=== PATIENT | male | born 1975 | race Caucasian/White ===

== ENCOUNTER 2020-06-22 00:37 | Observation (INO) | payer OTHER ==
[2020-06-22] MEDS ORDERED: TYLENOL EXTRA STRENGTH 500 MG PO ONE (01:15)
[2020-06-22] MEDS ORDERED: TYLENOL EXTRA STRENGTH 500 MG ONE (01:15)
[2020-06-22 01:18] LABS: Hematocrit 39.6 % (42-50); Hemoglobin 13.8 gm/dl (12.5-18.0); Mean Corpuscular Hemoglobin 27.5 pg (26-32); Mean Corpuscular Hgb Concent. 34.8 g/dl (32-36); Mean Platelet Volume 10.2 fl (7.5-11.0); Platelet Count 129 K/mm3 (150-450); Red Blood Count 5.01 M/mm3 (4.1-5.6); White Blood Count 2.7 K/mm3 (4.0-10.5)
[2020-06-22 01:32] LABS: ALKALINE PHOSPHATASE 65 U/L (38-126); ANION GAP 13.7 MEQ/L (5-15); BLOOD UREA NITROGEN 10 mg/dL (9-20); CHLORIDE 99 mmol/L (98-107); Calcium 9.4 mg/dL (8.4-10.2); Carbon Dioxide 25 mmol/L (22-30); Creatinine 1 0.75 mg/dL (0.66-1.25); Glucose 256 mg/dL (74-106); Potassium 3.2 mmol/L (3.5-5.1); SGOT/AST 78 U/L (17-59); SGPT/ALT 76 U/L (0-50); SODIUM 135 mmol/L (137-145); Total Protein 6.9 g/dL (6.3-8.2)
--- NOTE | 2020-06-22 01:59 | ERPHSYRPT ---
- History of Present Illness Time Seen by Provider: 06/22/20 00:48 Source: patient, EMS Exam Limitations: no limitations Patient Subjective Stated Complaint: pt states he was diagnosed with the covid 19 on thursday. states he has run a fever for the last 2 days and has not been able to keep his temperature down today. states temp was 103.5 at home. Triage Nursing Assessment: pt alert and oriented, answers questions approp. skin warm and dry. respirations nonlabored with lungs cta. pt pt arrive per ambulance, transfers from ems cot to stretcher without difficulty. pt c/o generalized aches and pains Physician History: 44 yo wm w diagnosies of Covid19 on06/14/20 presents w worsening fever/chills/myalgias. Pt has a h/o DM/morbid obesity. Cough Quality/Degree: dry cough Associated Symptoms: fever, chills, cough Allergies/Adverse Reactions: Penicillins Allergy (Verified 06/22/20 01:46) Diarrhea Home Medications: Atorvastatin Calcium [Lipitor] 40 mg PO DAILY 06/22/20 [History] Fluoxetine HCl [Prozac] 40 mg PO DAILY 06/22/20 [History] Metformin HCl 500 mg [Glucophage 500 MG] 500 mg PO BID 06/22/20 [History] Trazodone HCl 100 mg PO HS PRN PRN 06/22/20 [History] Hx Tetanus, Diphtheria Vaccination/Date Given: Yes Hx Influenza Vaccination/Date Given: No Hx Pneumococcal Vaccination/Date Given: No Immunizations Up to Date: Yes Travel Risk - International Travel Have you traveled outside of the country in past 3 weeks: No - Coronavirus Screening Symptoms: Fever Close contact with a COVID-19 positive Pt in past 14-21 Days: No - Review of Systems Constitutional: Fever, Chills, Fatigue, Lethargy Eyes: No Symptoms Ears, Nose, & Throat: No Symptoms Respiratory: Cough Cardiac: No Symptoms Abdominal/Gastrointestinal: No Symptoms Skin: No Symptoms Neurological: No Symptoms Psychological: No Symptoms Endocrine: No Symptoms Hematologic/Lymphatic: No Symptoms Immunological/Allergic: No Symptoms - Past Medical History Pertinent Past Medical History: Yes Neurological History: No Pertinent History ENT History: Other Cardiac History: High Cholesterol Respiratory History: No Pertinent History Endocrine Medical History: Diabetes Type II Musculoskeletal History: No Pertinent History GI Medical History: Other History: No Pertinent History Psycho-Social History: Anxiety Male Reproductive Disorders: No Pertinent History Other Medical History: INCREASED LIVER ENZYMES, fatty liver, OPTIC NEURITIS - Past Surgical History Past Surgical History: Yes Neuro Surgical History: No Pertinent History Cardiac: No Pertinent History Respiratory: No Pertinent History Gastrointestinal: No Pertinent History Genitourinary: Other Musculoskeletal: No Pertinent History Male Surgical History: No Pertinent History Other Surgical History: TONSILLECTOMY, kidney stone - Social History Smoking Status: Never smoker Exposure to second hand smoke: No Drug Use: none Patient Lives Alone: Yes - Nursing Vital Signs Nursing Vital Signs: Initial Vital Signs Temperature 103.2 F 06/22/20 00:38 Pulse Rate 112 H 06/22/20 00:38 Respiratory Rate 20 06/22/20 00:38 Blood Pressure 133/95 06/22/20 00:38 O2 Sat by Pulse Oximetry 97 06/22/20 00:38 Pain Scale Pain Intensity 2 - Physical Exam General Appearance: no apparent distress, lethargy Eye Exam: PERRL/EOMI Ears, Nose, Throat Exam: normal ENT inspection Neck Exam: normal inspection, non-tender, supple, full range of motion, No meningismus, No mass, No Brudzinski, No Kernig's Respiratory Exam: normal breath sounds, lungs clear Cardiovascular Exam: tachycardia Gastrointestinal/Abdomen Exam: soft, normal bowel sounds, No tenderness Back Exam: normal inspection, normal range of motion, CVA tenderness Neurologic Exam: alert, oriented x 3, cooperative, insurance consultant II-XII nml as tested, normal mood/affect, sensation nml, No motor deficits, No sensory deficit Skin Exam: normal color, warm, dry, No rash Lymphatic Exam: adenopathy SpO2 Interpretation: normal SpO2: 97 O2 Delivery: Room Air - Course EKG Interpreted by Me: RATE (sinus tach/poor r wave progression/ST-T wave changes) - Radiology Exams Chest X-ray Interpretation: Interpreted by me (Nothing acute) Ordered Tests: Active Orders 24 hr Category Date Time Status Bedrest with BRP/BSC ROUTINE Activity 06/22/20 02:37 Active Code Status Order ROUTINE Care 06/22/20 02:35 Active EKG-ER Only STAT Care 06/22/20 00:56 Active Elevate HOB ROUTINE Care 06/22/20 02:34 Active IV Care Q6H Care 06/22/20 02:36 Active Intake and Output Q12H Care 06/22/20 02:34 Active Isolation, Initiate & Maintain Q6H Care 06/22/20 02:34 Active Isolation, Initiate & Maintain STAT Care 06/22/20 00:[address] in Observation ROUTINE Care 06/22/20 02:34 Active Vital Signs Q4H Care 06/22/20 02:34 Active Consistent Carbohydrate Diet 1800 Calorie Diet 06/22/20 Breakfast Active CHEST 1 VIEW (PORTABLE) Stat Exams 06/22/20 00:51 Taken BLOOD CULTURE Stat Lab 06/22/20 Ordered CBC AM.LAB Lab 06/22/20 04:00 Ordered CBC Stat Lab 06/22/20 01:15 Completed CMP AM.LAB Lab 06/22/20 04:00 Ordered CMP Stat Lab 06/22/20 01:15 Completed Lactic Acid AM.LAB Lab 06/22/20 04:00 Ordered Lactic Acid Stat Lab 06/22/20 00:30 Completed TROPONIN Q3H Lab 06/22/20 04:00 Ordered TROPONIN Q3H Lab 06/22/20 07:00 Ordered TROPONIN Q3H Lab 06/22/20 10:00 Ordered TROPONIN Q3H Lab 06/22/20 13:00 Ordered UA W/RFX UR CULTURE Stat Lab 06/22/20 02:06 Completed Pulse Oximetry ROUTINE RT 06/22/20 02:34 Active Respiratory Therapy Consult ROUTINE RT 06/22/20 02:34 Active Transfer Order Routine Transfer 06/22/20 Ordered Medication Summary Generic Name Dose Route Start Last Admin Trade Name Freq PRN Reason Stop Dose Admin Acetaminophen 650 mg 06/22/20 02:34 Tylenol 325 Mg PO 07/22/20 02:33 Q4H PRN PRN PAIN AND/OR FEVER Enoxaparin Sodium 40 mg 06/22/20 10:00 Enoxaparin Sodium SQ 07/22/20 09:59 DAILY BRIDGET Sodium Chloride 1,000 mls @ 80 mls/hr 06/22/20 02:45 Sodium Chloride 0.9% 1000 Ml IV 07/22/20 02:44 .[id number] BRIDGET Insulin Human Lispro 0 unit 06/22/20 02:34 Humalog SQ 07/22/20 02:33 UD PRN HYPERGLYCEMIA Ondansetron HCl 4 mg 06/22/20 02:34 Zofran 4 Mg/2 Ml Vial IV 07/22/20 02:33 Q6H PRN PRN NAUSEA/VOMITING Pantoprazole Sodium 40 mg 06/22/20 10:00 Protonix 40 Mg Iv IV 07/22/20 09:59 Q24H10 BRIDGET Discontinued Medications Generic Name Dose Route Start Last Admin Trade Name Freq PRN Reason Stop Dose Admin Acetaminophen 1,000 mg 06/22/20 01:15 06/22/20 01:16 Tylenol Extra Strength 500 Mg PO 06/22/20 01:16 1,000 mg STAT ONE Administration Acetaminophen Confirm 06/22/20 01:15 Tylenol Extra Strength 500 Mg Administered 06/22/20 01:16 Dose 1,000 mg .ROUTE .STK-MED ONE Lab/Rad Data: Laboratory Result Diagrams 06/22/20 01:15 06/22/20 01:15 Laboratory Results 06/22/20 06/22/20 06/22/20 Range/Units 02:06 01:16 01:15 WBC (4.0-10.5) K/mm3 RBC (4.1-5.6) M/mm3 Hgb (12.5-18.0) gm/dl Hct (42-50) % MCV (78-100) fl MCH (26-32) pg MCHC (32-36) g/dl RDW (11.5-14.0) % Plt Count (150-450) K/mm3 MPV (7.5-11.0) fl Sodium 135 L (137-145) mmol/L Potassium 3.2 L (3.5-5.1) mmol/L Chloride 99 (98-107) mmol/L Carbon Dioxide 25 (22-30) mmol/L Anion Gap 13.7 (5-15) MEQ/L BUN 10 (9-20) mg/dL Creatinine 0.75 (0.66-1.25) mg/dL Estimated GFR > 60.0 ML/MIN Glucose 256 H (74-106) mg/dL Lactic Acid (0.4-2.0) Calcium 9.4 (8.4-10.2) mg/dL Total Bilirubin 0.80 (0.2-1.3) mg/dL AST 78 H (17-59) U/L ALT 76 H (0-50) U/L Alkaline Phosphatase 65 (38-126) U/L Troponin 0.00 (0.00-0.03) ng/mL Serum Total Protein 6.9 (6.3-8.2) g/dL Albumin 4.0 (3.5-5.0) g/dL Urine Color YELLOW (YELLOW) Urine Appearance CLEAR (CLEAR) Urine pH 6.0 (5-6) Ur Specific Hancock 1.029 (1.005-1.025) Urine Protein 100 (Negative) Urine Ketones TRACE (NEGATIVE) Urine Blood SMALL (0-5) Lul/ul Urine Nitrite NEGATIVE (NEGATIVE) Urine Bilirubin NEGATIVE (NEGATIVE) Urine Urobilinogen NEGATIVE (0-1) mg/dL Ur Leukocyte Esterase NEGATIVE (NEGATIVE) Urine WBC (Auto) NONE (0-5) /HPF Urine RBC (Auto) NONE (0-2) /HPF U Epithel Cells (Auto) NONE (FEW) /HPF Urine Bacteria (Auto) NONE SEEN (NEGATIVE) /HPF Urine Mucus (Auto) SLIGHT (NEGATIVE) /HPF Urine Culture Reflexed NO (NO) Urine Glucose >=500 (NEGATIVE) mg/dL 06/22/20 06/22/20 Range/Units 01:15 00:30 WBC 2.7 L (4.0-10.5) K/mm3 RBC 5.01 (4.1-5.6) M/mm3 Hgb 13.8 (12.5-18.0) gm/dl Hct 39.6 L (42-50) % MCV 79.0 (78-100) fl MCH 27.5 (26-32) pg MCHC 34.8 (32-36) g/dl RDW 13.0 (11.5-14.0) % Plt Count 129 L (150-450) K/mm3 MPV 10.2 (7.5-11.0) fl Sodium (137-145) mmol/L Potassium (3.5-5.1) mmol/L Chloride (98-107) mmol/L Carbon Dioxide (22-30) mmol/L Anion Gap (5-15) MEQ/L BUN (9-20) mg/dL Creatinine (0.66-1.25) mg/dL Estimated GFR ML/MIN Glucose (74-106) mg/dL Lactic Acid 3.0 H (0.4-2.0) Calcium (8.4-10.2) mg/dL Total Bilirubin (0.2-1.3) mg/dL AST (17-59) U/L ALT (0-50) U/L Alkaline Phosphatase (38-126) U/L Troponin (0.00-0.03) ng/mL Serum Total Protein (6.3-8.2) g/dL Albumin (3.5-5.0) g/dL Urine Color (YELLOW) Urine Appearance (CLEAR) Urine pH (5-6) Ur Specific Hancock (1.005-1.025) Urine Protein (Negative) Urine Ketones (NEGATIVE) Urine Blood (0-5) Lul/ul Urine Nitrite (NEGATIVE) Urine Bilirubin (NEGATIVE) Urine Urobilinogen (0-1) mg/dL Ur Leukocyte Esterase (NEGATIVE) Urine WBC (Auto) (0-5) /HPF Urine RBC (Auto) (0-2) /HPF U Epithel Cells (Auto) (FEW) /HPF Urine Bacteria (Auto) (NEGATIVE) /HPF Urine Mucus (Auto) (NEGATIVE) /HPF Urine Culture Reflexed (NO) Urine Glucose (NEGATIVE) mg/dL - Progress Air Movement: good Progress Note: 06/22/20 02:32 Admit to Covid unit per Dr. Coffman - Departure Departure Disposition: Observation Clinical Impression: COVID-19 Condition: Stable Critical Care Time: No Referrals: DOCTOR,NO FAMILY [Primary Care Provider] -
[2020-06-22 02:11] LABS: Appearance CLEAR (CLEAR); Bilirubin NEGATIVE (NEGATIVE); Blood SMALL Ery/ul (0-5); Glucose >=500 mg/dL (NEGATIVE); Ketones TRACE (NEGATIVE); Leukocyte Esterase NEGATIVE (NEGATIVE); Mucus SLIGHT /HPF (NEGATIVE); Nitrite NEGATIVE (NEGATIVE); Protein,Urine Dip 100 (Negative); Specific Gravity 1.029 (1.005-1.025); Urobilinogen NEGATIVE mg/dL (0-1)
[2020-06-22 02:13] LABS: Bacteria NONE SEEN /HPF (NEGATIVE)
[2020-06-22] MEDS ORDERED: HUMALOG SQ PRN (02:34)
[2020-06-22] MEDS ORDERED: TYLENOL 325 MG PO PRN (02:34)
[2020-06-22] MEDS ORDERED: Zofran 4 MG/2 ML VIAL IV PRN (02:34)
[2020-06-22] MEDS: Sodium Chloride 0.9% 1000 ML 1,000 ML IV SCH ×2 (04:00→15:15)
[2020-06-22 04:59] LABS: ALBUMIN 4.3 g/dL (3.5-5.0); ALKALINE PHOSPHATASE 67 U/L (38-126); ANION GAP 17.4 MEQ/L (5-15); BLOOD UREA NITROGEN 10 mg/dL (9-20); CHLORIDE 97 mmol/L (98-107); Calcium 9.4 mg/dL (8.4-10.2); Carbon Dioxide 28 mmol/L (22-30); Creatinine 1 0.86 mg/dL (0.66-1.25); Glucose 183 mg/dL (74-106); SGOT/AST 93 U/L (17-59); SGPT/ALT 83 U/L (0-50); SODIUM 140 mmol/L (137-145); Total Protein 7.4 g/dL (6.3-8.2)
[2020-06-22 05:17] LABS: Potassium 2.8 mmol/L (3.5-5.1)
[2020-06-22 05:20] LABS: Hematocrit 43.1 % (42-50); Hemoglobin 14.8 gm/dl (12.5-18.0); Mean Cell Volume 80.1 fl (78-100); Mean Corpuscular Hemoglobin 27.5 pg (26-32); Mean Corpuscular Hgb Concent. 34.3 g/dl (32-36); Platelet Count 153 K/mm3 (150-450); Red Blood Count 5.38 M/mm3 (4.1-5.6); Red Cell Distribution Width 13.1 % (11.5-14.0); White Blood Count 3.9 K/mm3 (4.0-10.5)
[2020-06-22] MEDS ORDERED: POTASSIUM CHLORIDE 20 mEq IN WATER 100ML 20 MEQ/100 ML BAG IV ONE (05:21)
--- NOTE | 2020-06-22 08:33 | XRAY ---
Exam: AP upright portable chest film from 06/22/2020. Comparison: None. Indication: Cough, fever, diagnosed with Covid-19 on June 15; patient began having symptoms on June 09. Findings: The heart size and contour are normal. The chalino and mediastinal structures appear unremarkable. There is average inflation of the lung carter. No air space infiltrates, vascular congestion, pneumothorax, or pleural fluid is seen. There is minimal convexity of the lower thoracic spine toward the left centered at T9. I also note some lateral osteophyte formation within the lower thoracic spine on the right. Impression: 1. No air space infiltrates are seen to suggest pneumonia. No other acute cardiopulmonary disease is seen.
[2020-06-22] MEDS ORDERED: Ativan 1 MG PO PRN (10:00)
[2020-06-22] MEDS ORDERED: NON-FORMULARY ITEM (Trazodone Hcl [Trazodone Hcl] 100 MG) PO PRN (11:07)
[2020-06-22] MEDS ORDERED: DESYREL 50 MG PO PRN (11:14)
[2020-06-22] MEDS: ENOXAPARIN SODIUM SQ SCH (11:25)
[2020-06-22] MEDS: PROTONIX 40 MG IV IV SCH (11:25)
--- NOTE | 2020-06-22 11:35 | HP ---
CHIEF COMPLAINT: Fever, chills, nausea, positive COVID test on 06/17/2020. 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 He was asymptomatic at that time and went home to self-isolate. For the last few days he has been running a fever and last night spiked up to 103.5F. He felt nauseated and had a dry cough and called an ambulance. He is a nonsmoker. No history of lung disease. He has a history of diabetes mellitus type II. He is obese. TRAVEL RISK: None. MEDICATIONS: Lipitor 40, Prozac 40, Metformin 500 b.i.d., trazodone 100 h.s. ALLERGIES: PENICILLIN. PAST MEDICAL HISTORY: Diabetes mellitus type II, mild hyperlipidemia. History of increased liver enzymes due to fatty liver supposedly and optic neuritis at one time. PAST SURGICAL HISTORY: None. REVIEW OF SYSTEMS: HEENT: No problems hearing or seeing. He said he has lost his taste. CHEST: Frequent dry cough. CVS: No history of hypertension, chest pain. ABDOMEN: He has been nauseated a little bit, has had diarrhea for three days off and on. SKIN: No problems. NEUROLOGIC: He has anxiety, trouble sleeping. Denies being severely depressed, just depressed because he is sick. SOCIAL HISTORY: He lives alone, nonsmoker, rarely drinks. PHYSICAL EXAMINATION: The patient is alert, orientated, moderately heavy male looks acutely ill. VITAL SIGNS: On admission temperature 103F, pulse 112, respiratory rate 20 and blood pressure 133/95. O2 saturation on room air was 97%. HEENT: Pupils equal and reactive to light. No jaundice. NECK: No stiffness. Normal range of motion. CHEST: Clear, breathing okay. CVS: Regular rate. No murmurs or gallops. ABDOMEN: No tenderness. No organomegaly. Obese. EXTREMITIES: No edema. No rash. LAB DATA AND TESTS: CBC was normal. Lactic acid was slightly elevated. Troponins were negative. Potassium was low at 2.7 thought to be secondary to diarrhea the last few days which was repeated after a bolus and came up to 6.2. Liver enzymes were minimally elevated. AST 78, ALT 76, alkaline phosphatase normal. He said he has the diagnosis of fatty liver. White count was 2.7, hemoglobin 13.8, lactic acid mildly elevated at 3.0. Chest x-ray was normal. IMPRESSION: 1) COVID-19. 2) Hypokalemia secondary to diarrhea from COVID-19. 3) Diabetes mellitus in the past fairly well controlled with Metformin. 4) Anxiety. PLAN: The patient will be placed in the COVID unit in isolation. Will probably give him antiviral medication, start oral potassium. PROGNOSIS: Good.
[2020-06-22] MEDS: TYLENOL EXTRA STRENGTH 500 MG PO PRN ×2 (11:51→16:46)
[2020-06-22] MEDS: Glucophage 500 MG PO SCH ×2 (11:51→16:45)
[2020-06-22] MEDS: Prozac 20 MG PO SCH (11:51)
[2020-06-22] MEDS: Klor Con 10 MEQ PO SCH ×2 (11:51→21:28)
[2020-06-22] MEDS: Ativan 1 MG PO SCH (21:28)
[2020-06-22] MEDS: ZOCOR 20MG PO SCH (21:28)
[2020-06-23] MEDS: TYLENOL EXTRA STRENGTH 500 MG PO PRN ×2 (02:44→09:05)
[2020-06-23] MEDS: Sodium Chloride 0.9% 1000 ML 1,000 ML IV SCH ×2 (02:45→14:47)
[2020-06-23] MEDS: Glucophage 500 MG PO SCH ×2 (07:33→16:59)
[2020-06-23] MEDS: ENOXAPARIN SODIUM SQ SCH (09:33)
[2020-06-23] MEDS: Prozac 20 MG PO SCH (09:34)
[2020-06-23] MEDS: PROTONIX 40 MG IV IV SCH (09:34)
[2020-06-23] MEDS: Klor Con 10 MEQ PO SCH ×2 (09:34→21:22)
[2020-06-23] MEDS ORDERED: NON-FORMULARY ITEM (Atorvastatin Calcium [Lipitor] 40 MG) PO SCH (10:00)
[2020-06-23] MEDS ORDERED: NON-FORMULARY ITEM (Fluoxetine Hcl [Prozac] 40 MG) PO SCH (10:00)
[2020-06-23] MEDS: Ativan 1 MG PO SCH (21:22)
[2020-06-23] MEDS: ZOCOR 20MG PO SCH (21:22)
[2020-06-24] MEDS: Sodium Chloride 0.9% 1000 ML 1,000 ML IV SCH (03:49)
[2020-06-24 05:03] LABS: Hematocrit 37.2 % (42-50); Hemoglobin 12.4 gm/dl (12.5-18.0); Mean Cell Volume 81.4 fl (78-100); Mean Corpuscular Hemoglobin 27.1 pg (26-32); Mean Corpuscular Hgb Concent. 33.3 g/dl (32-36); Mean Platelet Volume 10.1 fl (7.5-11.0); Platelet Count 157 K/mm3 (150-450); Red Blood Count 4.57 M/mm3 (4.1-5.6); Red Cell Distribution Width 13.3 % (11.5-14.0)
[2020-06-24] MEDS: Glucophage 500 MG PO SCH (08:06)
[2020-06-24] MEDS: ENOXAPARIN SODIUM SQ SCH (09:31)
[2020-06-24] MEDS: Prozac 20 MG PO SCH (09:31)
[2020-06-24] MEDS: PROTONIX 40 MG IV IV SCH (09:31)
[2020-06-24] MEDS: Klor Con 10 MEQ PO SCH (09:31)
[2020-06-24 10:24] LABS: ANISOCYTOSIS 1+; BAND 2 % (0.0-2.0); Lymphocytes 28 % (24-44); Monocyte 7 % (0.0-12.0); Neutrophils 63 % (36.-66.); Platelet Estimate NORMAL (NORMAL); Polychromasia RARE; Total Cells Counted 100
[2020-06-24 12:18] VITALS: BP 122/78; PULSE 81; O2SAT 96
== END 2020-06-24 12:00 | disposition home or self-care (01) ==
LOC: ED 00:37 → MED SURG 03:31
PROVIDERS: ADMIT Family Medicine; ATTEND Family Medicine
DX: U07.1 COVID-19 (principal); E87.6 Hypokalemia; E11.9 Type 2 diabetes mellitus without complications; F41.9 Anxiety disorder, unspecified; R19.7 Diarrhea, unspecified; E78.00 Pure hypercholesterolemia, unspecified; Z79.899 Other long term (current) drug therapy
CPT/HCPCS: 36415; 71045; 80053; 81001; 82962; 83036; 83605; 84132; 84484; 85025; 85027; 87040; 93005; 94760; 99284; G0378; J1650; J1817; J3480; A9270-GY

== ENCOUNTER 2020-07-26 02:39 | Emergency (ER) | payer OTHER ==
--- NOTE | 2020-07-26 03:08 | ERPHSYRPT ---
- History of Present Illness Time Seen by Provider: 07/26/20 02:55 Historian: patient Exam Limitations: no limitations Patient Subjective Stated Complaint: pt states he had sudden onset rt lower abd pain tonight. states he has been constipated for the last several days but had 2 bm's today Triage Nursing Assessment: pt alert and oriented, answers questions approp. pt ambulatory with steady gait noted, respirations nonlabored with lungs cta. abd soft and nontender to light palpation. bowel sounds x4. skin pink warm and dry. Physician History: This is a 44-year-old obese white male who approximately 1 hour prior to this evaluation had sudden onset of right-sided abdominal pain. He stated he had been constipated the 2 days prior. He denies nausea vomiting or diarrhea. Patient has a history of kidney stones in the past. Because of the sudden and severe onset of his abdominal pain he came to the emergency room for evaluation. By the time the patient arrived to the emergency room, patient stated his right-sided abdominal pain had completely resolved. Patient does not have pain at the time of this evaluation. Patient denies chest pain he denies shortness of breath. He is had no fevers. We discussed his option of just going home. We also discussed doing a full work-up with IV placement, IV fluids, blood work, urinalysis, and CAT scan of the abdomen and pelvis. I told the patient we should do a work-up because he could go home and in an hour have the pain again if there is something present intra-abdominal he. Patient has agreed to urinalysis and CAT scan of the abdomen and pelvis. He does not want any IV placed, blood draws or IV fluids. Timing/Duration: today, resolved prior to arrival, sudden Activities at Onset: none Quality: sharpness, stabbing Abdominal Pain Onset Location: RUQ, RLQ Severity of Pain-Max: moderate Severity of Pain-Current: none Modifying Factors: Improves With: other (Spontaneous resolution) Associated Symptoms: denies symptoms Previous symptoms: same symptoms as today (Patient felt that this pain was similar to his prior kidney/ureteral stone attacks) Allergies/Adverse Reactions: Penicillins Allergy (Verified 07/26/20 03:01) Diarrhea Home Medications: Atorvastatin Calcium [Lipitor] 40 mg PO DAILY 06/22/20 [History] Fluoxetine HCl [Prozac] 40 mg PO DAILY 06/22/20 [History] Metformin HCl 500 mg [Glucophage 500 MG] 500 mg PO BID 06/22/20 [History] Trazodone HCl 100 mg PO HS PRN PRN 06/22/20 [History] Hx Tetanus, Diphtheria Vaccination/Date Given: Yes Hx Influenza Vaccination/Date Given: No Hx Pneumococcal Vaccination/Date Given: No Immunizations Up to Date: Yes Travel Risk - International Travel Have you traveled outside of the country in past 3 weeks: No - Coronavirus Screening Are you exhibiting any of the following symptoms?: No Close contact with a COVID-19 positive Pt in past 14-21 Days: No - Review of Systems Constitutional: No Symptoms Eyes: No Symptoms Ears, Nose, & Throat: No Symptoms Respiratory: No Symptoms Cardiac: No Symptoms Abdominal/Gastrointestinal: Abdominal Pain (Right side) Genitourinary Symptoms: No Symptoms Musculoskeletal: No Symptoms Skin: No Symptoms Neurological: No Symptoms Psychological: No Symptoms Endocrine: No Symptoms Hematologic/Lymphatic: No Symptoms Immunological/Allergic: No Symptoms All Other Systems: Reviewed and Negative - Past Medical History Pertinent Past Medical History: Yes Neurological History: No Pertinent History ENT History: Other Cardiac History: High Cholesterol Respiratory History: No Pertinent History Endocrine Medical History: Diabetes Type II Musculoskeletal History: No Pertinent History GI Medical History: Other History: No Pertinent History Psycho-Social History: Anxiety Male Reproductive Disorders: No Pertinent History Other Medical History: INCREASED LIVER ENZYMES, fatty liver, OPTIC NEURITIS- resolved - Past Surgical History Past Surgical History: Yes Neuro Surgical History: No Pertinent History Cardiac: No Pertinent History Respiratory: No Pertinent History Gastrointestinal: No Pertinent History Genitourinary: Other Musculoskeletal: No Pertinent History Male Surgical History: No Pertinent History Other Surgical History: TONSILLECTOMY, kidney stone - Social History Smoking Status: Never smoker Exposure to second hand smoke: No Drug Use: none Patient Lives Alone: Yes - Nursing Vital Signs Nursing Vital Signs: Initial Vital Signs Temperature 99.0 F 07/26/20 02:49 Pulse Rate 81 07/26/20 02:49 Respiratory Rate 18 07/26/20 02:49 Blood Pressure 132/96 07/26/20 02:49 O2 Sat by Pulse Oximetry 99 07/26/20 02:49 Pain Scale Pain Intensity 1 - Physical Exam General Appearance: no apparent distress, alert, obese Eye Exam: PERRL/EOMI, eyes nml inspection Ears, Nose, Throat Exam: normal ENT inspection, moist mucous membranes Neck Exam: normal inspection, non-tender, supple, full range of motion Respiratory Exam: normal breath sounds, lungs clear, airway intact, No chest tenderness, No respiratory distress Cardiovascular Exam: regular rate/rhythm, normal heart sounds, normal peripheral pulses Gastrointestinal/Abdomen Exam: soft, normal bowel sounds, No tenderness, No guarding, No rebound Rectal Exam: not done Back Exam: normal inspection, normal range of motion, No CVA tenderness, No vertebral tenderness Extremity Exam: normal inspection, normal range of motion, pelvis stable Neurologic Exam: alert, oriented x 3, cooperative, 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, normal mood/affect, nml cerebellar function, nml station & gait, sensation nml Skin Exam: normal color, warm, dry Lymphatic Exam: No adenopathy SpO2 Interpretation: normal SpO2: 99 O2 Delivery: Room Air - Course Nursing assessment & vital signs reviewed: Yes Ordered Tests: Active Orders 24 hr Category Date Time Status ABDOMEN AND PELVIS W/0 CONTRAS [CT] Stat Exams 07/26/20 03:17 Stop Req UA W/RFX UR CULTURE Stat Lab 07/26/20 03:35 Stop Req - Progress Progress: improved Progress Note: 07/26/20 03:37 Medical decision making: This patient's symptoms completely resolved prior to his arrival to the emergency department. He had originally opted for CAT scan of the abdomen and pelvis as well as a urinalysis. However when he provided a urine sample he passed a kidney stone. He felt that this was likely the cause of his pain when he first experienced the pain because it was similar to another episode of ureteral stone. In the patient's mind, this current passage of a ureteral stone, confirms his suspicion that this was the cause of his pain. He now decides to cancel the urinalysis and the CAT scan of the abdomen and pelvis. I do not necessarily disagree. Counseled pt/family regarding: diagnosis, need for follow-up - Departure Departure Disposition: Home Clinical Impression: Abdominal pain Condition: Good Critical Care Time: No Referrals: DOCTOR,NO FAMILY [Primary Care Provider] - Additional Instructions: Drink plenty of fluids. Use Tylenol and ibuprofen for any pain control. Return to the emergency department if symptoms recur
[2020-07-26 03:56] VITALS: BP 132/98; PULSE 91; O2SAT 97
== END 2020-07-26 03:55 | disposition home or self-care (01) ==
LOC: ED 02:39
DX: R10.9 Unspecified abdominal pain (principal)
CPT/HCPCS: 99283

== ENCOUNTER 2024-05-16 08:55 | Day surgery (SDC) | payer OTHER ==
[2024-05-16] MEDS ORDERED: Lactated Ringers 1,000 ML IV ONE (09:06)
[2024-05-16] MEDS: Lactated Ringers 1,000 ML IV SCH (09:28)
--- NOTE | 2024-05-16 11:20 | HP ---
HISTORY OF PRESENT ILLNESS: A 48-year-old gentleman, last colonoscopy 3 years ago, had history of polyps in the past. No bloody stools. No change in bowel habits. No new pain. PAST MEDICAL HISTORY: He has had goiter in the past, type 2 diabetes, anxiety, hyperlipidemia in the past, wears corrective lenses. PAST SURGICAL HISTORY: Tonsillectomy, EGD and colonoscopy in the past. HOME MEDICATIONS: Fish oil, famotidine, trazodone, losartan, Farxiga, metformin, atorvastatin. ALLERGIES: PENICILLIN, CAUSED SOME RASH AND LOOSE STOOLS. FAMILY HISTORY: Colon cancer in aunt and uncle. SOCIAL HISTORY: No smoking or alcohol abuse. REVIEW OF SYSTEMS: Twelve systems reviewed. No chest pain or palpitations. Other systems negative or noncontributory other than above and per preadmission questionnaire. PHYSICAL EXAMINATION: GENERAL: Height 6 feet. BMI 34.31. No acute distress. HEENT: Sclerae anicteric. Extraocular movements intact. NECK: No JVD. CHEST: Equal excursion, nonlabored breathing. CARDIOVASCULAR: Regular rate and rhythm. ABDOMEN: Soft, nontender. EXTREMITIES: No cyanosis or edema. NEUROLOGIC: Alert, oriented, moving extremities symmetrically. PSYCHIATRIC: Appropriate mood and affect. SKIN: Dry. RECTAL: Deferred to time of endoscopy exam. IMPRESSION: History of polyps. He is in need of followup screening colonoscopy. I feel he is a candidate. Shown the risk sheet and explained the procedure in detail, including but not limited to bleeding or infection, risk of bowel injury and perforation possibly requiring open procedure, risk of incomplete exam, possibly requiring barium enema or other studies, risk of missed or nondiagnosis, possible need for other procedure or referrals, risk of anesthesia or sedation, risk of bowel prep but not limited to. We will proceed with outpatient colonoscopy under MAC anesthesia. Otherwise, continue medications for hyperlipidemia, hypertension, diabetes.
[2024-05-16] MEDS ORDERED: DIPRIVAN 200 MG/20 ML IV ONE ×2 (11:38→11:58)
[2024-05-16 12:34] VITALS: RESP 18; TEMP 97; O2SAT 99
[2024-05-16 12:44] VITALS: BP 104/87; PULSE 65
--- NOTE | 2024-05-16 15:27 | OP ---
SURGERY DATE/TIME: 05/16/2024 1144 [id number] PREOPERATIVE DIAGNOSIS: History of polyps, needs followup screening colonoscopy. POSTOPERATIVE DIAGNOSES: 1) Small polyps: Ascending colon x2, sigmoid colon x2. 2) Good prep. 3) ASA class II. 4) Withdrawal time was approximately 9 minutes. PROCEDURES: 1) Colonoscopy to the cecum. 2) Hot biopsy polypectomy of ascending colon and sigmoid colon polyps x2 each location. SURGEON: Fox Rosa MD INDICATIONS: As noted above. Consent obtained. DESCRIPTION OF PROCEDURE AND FINDINGS: The patient was taken to the endoscopy room. MAC anesthesia was induced. After official time-out and no disagreement with planned procedure, digital rectal exam did not reveal any rectal masses. He had minimal internal hemorrhoids. Videocolonoscope was inserted and passed up through the slightly tortuous sigmoid, descending, transverse, and ascending colon around to cecum. Appendiceal orifice and valve well visualized and photo documented. Prep overall was good. Had a little bit of liquidy stool, was suctioned clear. The scope was carefully withdrawn over the next 9 minutes. Two small polyps in the ascending colon were removed with hot biopsy polypectomy. The scope pulled around the sigmoid colon. There were 2 other small polyps, one of which was 3 mm in size. The rest of these were 2 mm. The largest polyp was 3 mm in size and removed with hot biopsy polypectomy in piecemeal fashion, appeared to be removed. Good hemostasis noted. Patient tolerated the procedure well. Findings discussed with family in the waiting area.
== END 2024-05-16 12:45 | disposition home or self-care (01) ==
LOC: SDC 08:55
PROVIDERS: ATTEND Surgery
DX: Z12.11 Encounter for screening for malignant neoplasm of colon (principal); Z09 Encounter for follow-up examination after completed treatment for conditions other than malignant neoplasm; Z86.010 Personal history of colon polyps; Z80.0 Family history of malignant neoplasm of digestive organs; E11.9 Type 2 diabetes mellitus without complications; K64.8 Other hemorrhoids; D12.5 Benign neoplasm of sigmoid colon
CPT/HCPCS: 82947; 93005; J2704